=== PATIENT | female | born 1995 | race Asian ===

== ENCOUNTER 2019-09-18 00:39 | Emergency (ER) | payer OTHER ==
[~2019-09-18] VITALS: Ht 160 cm; Wt 52.2 kg
[2019-09-18 00:40] VITALS: BP_SYST 108
--- NOTE | 2019-09-18 00:40 | NUR ---
Patient to ER chair to gown for evaluation. Side rails up. Report given to Cj GARCIA.
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
--- NOTE | 2019-09-18 01:16 | NUR ---
ER Dr. Mcdaniel at bedside examining patient.
[2019-09-18 01:48] VITALS: BP_SYST 115
--- NOTE | 2019-09-18 01:48 | NUR ---
Patient given written and verbal discharge instructions and verbalizes understanding. ER MD discussed with patient the results and treatment provided. Patient in stable condition. ID arm band removed. No Rx given. Patient educated on pain management and to follow up with PMD. Pain Scale 0. Opportunity for questions provided and answered. Medication side effect fact sheet provided.
== END 2019-09-18 01:48 | disposition home or self-care (01) ==
LOC: SED 00:39
DX: S80.01XA Contusion of right knee, initial encounter (principal); Z02.89 Encounter for other administrative examinations; V89.2XXA Person injured in unspecified motor-vehicle accident, traffic, initial encounter; Y93.89 Activity, other specified; Y92.413 State road as the place of occurrence of the external cause; Y99.8 Other external cause status
CPT/HCPCS: 99283